=== PATIENT | female | born 1985 | race Hispanic/Latino ===

== ENCOUNTER 2022-08-15 11:22 | Emergency (ER) | payer OTHER ==
[~2022-08-15] VITALS: Ht 165.1 cm; Wt 77.1 kg
[2022-08-15] MEDS ORDERED: SODIUM CHLORIDE 0.9% 1000ML 1,000 ML IV STA (12:03)
[2022-08-15] MEDS ORDERED: KETOROLAC TROMETHAMINE 30 MG/ML VIAL IV ONE (12:15)
[2022-08-15] MEDS ORDERED: ACETAMINOPHEN 325 MG TAB PO ONE (12:15)
[2022-08-15] MEDS ORDERED: ACETAMINOPHEN500 MG PO (12:31)
[2022-08-15] MEDS ORDERED: CEFDINIR300 MG PO (12:31)
[2022-08-15] MEDS ORDERED: IBUPROFEN200 MG PO (12:31)
== END 2022-08-15 13:12 | disposition home or self-care (01) ==
LOC: FSED 11:29
DX: R07.89 Other chest pain (principal); N39.0 Urinary tract infection, site not specified; R20.0 Anesthesia of skin; D64.9 Anemia, unspecified
CPT/HCPCS: 71046; 80053; 81003; 81025; 82553; 84484; 85025; 93005; 99283; J1885

== ENCOUNTER 2022-08-27 14:06 | Emergency (ER) | payer OTHER ==
[~2022-08-27] VITALS: Ht 165.1 cm; Wt 79.4 kg
[~2022-08-27 14:06] MED LIST: ACETAMINOPHEN500 MG PO; CEFDINIR300 MG PO; IBUPROFEN200 MG PO
[2022-08-27 14:47] LABS: CLARITY,URINE CLEAR (CLEAR); COLOR,URINE YELLOW (YELLOW); LEUKOCYTE ESTERASE ,URINE NEGATIVE (NEGATIVE); NITRITE,URINE NEGATIVE (NEGATIVE)
[2022-08-27 14:48] LABS: KETONES,URINE NEGATIVE (NEGATIVE); PROTEIN,URINE DIPSTICK NEGATIVE (NEGATIVE); URINE UROBILINOGEN 0.2 mg/dL (0.2 - 1)
[2022-08-27 14:56] LABS: EPITHELIAL CELLS,URINE RARE /LPF
== END 2022-08-27 15:30 | disposition home or self-care (01) ==
LOC: ER 14:14
DX: M54.50 Low back pain, unspecified (principal); D64.9 Anemia, unspecified
CPT/HCPCS: 72100; 81001; 81025; 99283

== ENCOUNTER 2024-01-27 11:06 | Emergency (ER) | payer SELFPAY ==
[~2024-01-27] VITALS: Ht 165.1 cm; Wt 79.4 kg
[2024-01-27] MEDS ORDERED: IBUPROFEN600 MG PO (12:28)
[2024-01-27 12:50] VITALS: BP 111/71; PULSE 74; RESP 18; TEMP 98.3; O2SAT 99
== END 2024-01-27 12:50 | disposition home or self-care (01) ==
LOC: FSED 11:20
DX: S67.190A Crushing injury of right index finger, initial encounter (principal); W23.1XXA Caught, crushed, jammed, or pinched between stationary objects, initial encounter; Y92.89 Other specified places as the place of occurrence of the external cause; D64.9 Anemia, unspecified
CPT/HCPCS: 99283

== ENCOUNTER 2024-12-09 11:10 | Emergency (ER) | payer OTHER ==
[~2024-12-09] VITALS: Ht 165.1 cm; Wt 80.4 kg
[~2024-12-09 11:10] MED LIST changes: +IBUPROFEN600 MG PO
[2024-12-09 11:31] VITALS: PULSE 76; RESP 18; TEMP 98.3
[2024-12-09 11:52] VITALS: BP 118/67; PULSE 76; RESP 18; O2SAT 98
== END 2024-12-09 11:52 | disposition home or self-care (01) ==
LOC: FSED 11:20
DX: M54.50 Low back pain, unspecified (principal); R35.0 Frequency of micturition; R51.9 Headache, unspecified; D64.9 Anemia, unspecified
CPT/HCPCS: 81003; 81025; 99282